=== PATIENT | male | born 1995 | race Caucasian/White ===

== ENCOUNTER 2020-08-17 11:25 | Outpatient (CLI) | payer OTHER, SELFPAY ==
[2020-08-21 23:24] LABS: Patient Race White; SARS-CoV-2 RNA Undetected (Undetected); SARS-CoV-2 Specimen Source Nasal
== END 2020-08-17 11:45 ==
PROVIDERS: Visit Provider Family Medicine
DX: R50.9 Fever, unspecified (principal)
CPT/HCPCS: U0003